=== PATIENT | male | born 1960 | race Caucasian/White ===

== ENCOUNTER 2018-02-13 11:57 | Emergency (ER) | payer MEDICARE, OTHER ==
[~2018-02-13] VITALS: Ht 182.9 cm; Wt 72.6 kg
[~2018-02-13 11:57] MED LIST: ABILIFY5 MG PO; BACLOFEN10 MG; DICYCLOMINE HCL20 MG PO; GUANFACINE HCL1 MG; IBUPROFEN600 MG PO; NAPROXEN500 MG PO; NORCO 5-325 TA1 EACH PO; PAROXETINE HCL30 MG PO; SEROQUEL200 MG; TRAMADOL HCL50 MG PO; ULTRAM50 MG PO
[2018-02-13] MEDS ORDERED: IBUPROFEN600 MG PO (13:38)
[2018-02-13] MEDS ORDERED: MOXEZA3 ML OPTH (13:38)
== END 2018-02-13 13:51 | disposition home or self-care (01) ==
LOC: ED 11:57
DX: S00.12XA Contusion of left eyelid and periocular area, initial encounter (principal); H10.9 Unspecified conjunctivitis; W22.8XXA Striking against or struck by other objects, initial encounter
CPT/HCPCS: 99282